=== PATIENT | male | born 1985 | race African-American/Black ===

== ENCOUNTER 2016-07-14 09:34 | Emergency (ER) | payer MEDICAID ==
[~2016-07-14] VITALS: Ht 185.4 cm; Wt 140.0 kg
[~2016-07-14 09:34] MED LIST: CORT1SOL RIGHT EAR
[2016-07-14 09:36] VITALS: BP 166/103; PULSE 101; RESP 17; TEMP 98.1; O2SAT 98
[2016-07-14] MEDS ORDERED: NAPR500T PO (10:57)
[2016-07-14] MEDS ORDERED: CYCL1TAB29 PO (10:57)
--- NOTE | 2016-07-14 10:58 | PD ---
HPI Chief Complaint: Pain: Acute or Chronic Time Seen by Provider: 10:57 Travel History International Travel<30 days: No Contact w/Intl Traveler<30days: No Traveled to known affect area: No History of Present Illness HPI 30-year-old male presents to the emergency department for evaluation of left- sided neck pain for 2 days. Denies any injury or trauma to his neck. States that he woke up with this pain and thinks that he slept on the couch awkwardly. States that it is a sharp spasming pain aggravated with rotating his head. He has not taken anything for his symptoms so far. He denies any fever, chills , nausea, vomiting, numbness or tingling, weakness, cough or cold symptoms. No other complaints. PFSH Past Medical History Cardiovascular Problems: Yes (HTN) Hypertension: Yes Social History Tobacco Use: No Allergies-Medications (Allergen,Severity, Reaction): Coded Allergies: Ritalin (Verified Allergy, Mild, HIVES, 06/06/16) Reported Meds & Prescriptions Reported Meds & Active Scripts Active Naproxen 500 Mg Tab 500 Mg PO BID 7 Days Flexeril (Cyclobenzaprine HCl) 10 Mg Tab 10 Mg PO TID 5 Days Cortisporin HC Otic Drops (Mieprvyi-Knaxyjnyu-AG Otic Drops) 3.5-10,000-1 Mg- Units-% Soln 4 Drop RIGHT EAR QID 5 Days Review of Systems Except as stated in HPI: all other systems reviewed are Neg Physical Exam Narrative GENERAL: Well-nourished and well-developed pleasant male patient in no acute distress who is nontoxic appearing. SKIN: Warm and dry. HEAD: Normocephalic and atraumatic. EYES: No injection, drainage, or hyphema noted. PERRLA. EOMI. ENT: No nasal drainage noted. Oropharynx is clear. NECK: Supple and the trachea is midline. Mild tenderness along the left sternocleidomastoid and left trapezius muscles. Full range of motion although rotating neck to either side does elicit pain in the left side of the neck. No midline bony point tenderness. She'll signs. CARDIOVASCULAR: Regular rate and rhythm. RESPIRATORY: Breath sounds are equal bilaterally with no accessory muscle use, wheezing, rhonchi, or crackles. GASTROINTESTINAL: Abdomen is soft, non-tender, and nondistended. MUSCULOSKELETAL: No obvious deformities, swelling, cyanosis, or ecchymosis is present throughout the upper and lower extremities. Patient has full range of motion without any signs of neurovascular compromise. Strength 5/5 upper and lower extremities equal bilaterally. NEUROLOGICAL: Awake, alert, and oriented. Normal speech and gait. Cranial nerves are grossly intact. Data Data Last Documented VS Vital Signs Date Time Temp Pulse Resp B/P Pulse Ox O2 Delivery O2 Flow Rate FiO2 07/14/16 09:36 98.1 101 17 166/103 98 [facility] Medical Decision Making Medical Screen Exam Complete: Yes Emergency Medical Condition: Yes Differential Diagnosis Cervical strain versus torticollis versus muscle spasm versus discogenic pain Narrative Course 30-year-old male presents to the emergency department for evaluation of left- sided neck pain for 2 days. No injury or trauma. Patient is afebrile, vital signs are stable. No focal neurologic deficits. The patient has torticollis. We'll treat him with NSAIDs and muscle relaxers. Discussed supportive care and when to return to the emergency Department. Advised follow-up with his PCP. Patient verbalizes understanding and agreement with treatment plan. Diagnosis Primary Impression: Acute torticollis Referrals: Primary Care Physician Patient Instructions: General Instructions Departure Forms: Tests/Procedures, Work Release Enter return to work date: Jul 16, 2016 Additional Instructions: Apply warm compresses. Take medications as prescribed with food and a full glass of water. Do not take Flexeril with alcohol or while driving. Follow-up with your Primary Care Physician. Return to the ED for any acute worsening of symptoms. Med/Other Pt SpecificInfo: Prescription(s) given Scripts Naproxen 500 Mg Fql209 Mg PO BID 7 Days Ref 0 Prov:Ajit Carias MD 07/14/16 Cyclobenzaprine (Flexeril)10 Mg Tab10 Mg PO TID 5 Days Ref 0 Prov:Ajit Carias MD 07/14/16 Disposition: 01 DISCHARGE HOME Condition: Stable Lora Turk Jul 14, 2016 10:58
[2016-07-14] MEDS ORDERED: ZANT150T2 PO (11:16)
== END 2016-07-14 11:19 | disposition home or self-care (01) ==
LOC: NEPB 09:34
DX: M43.6 Torticollis (principal); I10 Essential (primary) hypertension
CPT/HCPCS: 99283